=== PATIENT | female | born 1960 | race Caucasian/White ===

== ENCOUNTER 2019-04-06 21:45 | Emergency (ER) | payer SELFPAY ==
[2019-04-06 21:47] VITALS: BP 129/80; PULSE 84; RESP 16; TEMP 36.7; O2SAT 98; BMI 20.5
--- NOTE | 2019-04-06 22:03 | ED.VIS.GEN ---
History of Present Illness Chief Complaint: Bite Detail of Chief Complaint: Cat bite Informant: Patient, Family Onset: Today Current Severity: Mild Maximum Severity: Mild Narrative: Patient presents after a bite from her cat. Cat is 20 years old and is a pet of the patient. Patient's son brought his dog over. The dog was playing roughly with the cat. When the patient went to knot picker cloth the cat she was frightened and turned and bit the patient on her chin x2. She then turned and bit her right index finger. Cat is currently being cared for by a neighbor who is a vet. Past Medical History - Allergies and Home Meds Allergies/Adverse Reactions: Allergies ampicillin Allergy (Verified 04/06/19 21:49) Hives Primary Care Physician: NOT,DEFINED [Primary Care Provider] - Prior records reviewed: Yes Past Medical History: - - Reviewed Lives: With Family Review of Systems General: Denies: Chills, Fever Eyes: Denies: Visual changes - bilaterally ENT: Denies: Bilateral ear pain Cardiovascular: Denies: Chest pain Respiratory: Denies: Dyspnea Gastrointestinal: Denies: Abdominal pain Musculoskeletal: Reports: Extremity Pain Skin: Reports: Wounds Neurological: Denies: Weakness, Parasthesia, Numbness Hematologic: Denies: Easy bruising, Easy bleeding Physical Exam Vital Signs/Narrative: Vital Signs Temp Pulse Resp BP Pulse Ox 04/06/19 21:47 98.0 F 84 16 129/80 H 98 Inital Vital Signs reviewed: Yes General: Well nourished, Well developed Head: Normocephalic ENT: Moist mucous membranes, - - Patient has 4 very small lacerations each measuring 1 to 2 mm in size over her chin. No drainage or bleeding. Cardiovascular: Regular rate, Regular rhythm Respiratory: No distress Extremities: Nontender, - - Patient has 3 linear lacerations from cat bite on her right index finger. There is 1 over the back of her right index finger just proximal to her nail that measures approximately 3 mm in length. There are 2 over the distal phalanx on the palmar side, each measuring approximately 3 mm. There is no focal tenderness over the flexor or extensor tendons. She has full range of motion without difficulty. There is no drainage or bleeding at this time. Skin: - - As above Neurological: Alert, Oriented x3, Normal Strength, Normal Sensation Psychological: Normal affect Diagnostic/Tx/Re-eval - Medical Decision Making Wounds were cleansed. Patient does have an allergy to ampicillin. She will be covered with a course of doxycycline, first dose given here. She is given close return instructions if she develops any sign of infection. ED Disposition - Plan for ED Patient: Disposition: Home or Assisted Living Diagnosis: Cat bite Instructions: Cat Bite Prescriptions: Doxycycline 100 mg PO BID #20 capsule
[2019-04-06] MEDS: Doxycycline 100 MG CAPSULE PO (22:13)
[2019-04-06 22:31] VITALS: RESP 18
== END 2019-04-06 22:31 | disposition home or self-care (01) ==
LOC: ED 22:24
PROVIDERS: Emergency Provider Emergency Medicine; Family Provider Family Medicine; PCP Family Medicine
DX: S01.85XA Open bite of other part of head, initial encounter (principal); S61.250A Open bite of right index finger without damage to nail, initial encounter; W55.01XA Bitten by cat, initial encounter; Y93.89 Activity, other specified; Y92.009 Unspecified place in unspecified non-institutional (private) residence as the place of occurrence of the external cause; Y99.8 Other external cause status
CPT/HCPCS: 99282